=== PATIENT | female | born 1995 | race Caucasian/White ===

== ENCOUNTER 2016-12-15 21:11 | Emergency (ER) | payer OTHER ==
[2016-12-15] MEDS ORDERED: IBUPROFEN 600 MG TAB PO ONE (21:33)
--- NOTE | 2016-12-15 21:45 | EDPHY ---
General Time Seen by Provider: 12/15/16 21:29 Narrative: CHIEF COMPLAINT: Fall, left foot and ankle pain HISTORY OF PRESENT ILLNESS: Patient complains of left foot and ankle pain status post fall. She was walking down a set of concrete steps when she slipped, missing only the last 2 steps. She reports striking her left foot and her left 2nd toe on the edge of the concrete. She also struck her nose. She had a brief epistaxis this. All spontaneously. She had no head strike or loss of consciousness. She does have a moderate to severe pain in the left ankle and foot. It is primarily over the lateral foot and lateral ankle. It also involves the 2nd left toe. Worse with palpation and ambulation. Unable to bear weight due to the pain. Some tingling of the left 2nd toe. No lacerations. No pain anywhere else. No other associated complaints or modifying factors. PRIOR ORTHO INJURIES: Scoliosis status post surgical repair in [place] remotely ESTABLISHED ORTHOPEDIST: None locally REVIEW OF SYSTEMS: Ten systems reviewed and are negative unless otherwise noted in the HPI EXAMINATION General Appearance: Alert, no distress Cardiovascular: Pulses normal throughout. Symmetric DP and PT pulses 2+. Brisk cap refill Neurological: A&O, sensory symmetric, strength symmetric. No foot drop. Normal proprioception of the great toe Skin: Warm and dry, no rash. No lacerations. Extremities: Tenderness of left lateral ankle and left lateral midfoot. There is tenderness of the left 2nd toe. Range of motion difficult to test due to pain. There is no footdrop. Good strength of the left foot and ankle. Neurovascular intact distally Psychiatric: Mood and affect normal DIFFERENTIAL DIAGNOSES: Including but not limited to foot sprain, ankle sprain, metacarpal fracture, fibula fracture, toe fracture, dislocation, hematoma, contusion MDM: 9:35 p.m. Mechanical fall with left ankle and foot pain. She is neurovascular intact. X- rays of the areas of concern have been ordered. Ibuprofen is in order. She is in no acute distress. Father is at bedside. 10:20 p.m. Contacted by radiologist Dr. Guzman. Possible lucency at the base of the 5th metatarsal. Question whether this is related to previous fracture remotely. No evidence of Lisfranc fracture. I re-evaluated the patient she does have minimal pain there. She does report a fracture there remotely that was treated conservatively. The pain is primarily laterally over the foot. This may or may not be old healed fracture. I will place her in a boot as she is unable to bear weight due to the ankle and foot sprain. She also has crutches at bedside. Mandatory follow up with Orthopedics for definitive care. ED Precautions: Worsening pain. Erythema, edema, cyanosis, pallor, paresthesia or anesthesia. - History Smoking Status: Never smoked - Objective Vital Signs: Initial Vital Signs Temperature (C) 97.9 F 12/15/16 21:23 Heart Rate 87 12/15/16 21:23 Respiratory Rate 18 12/15/16 21:23 Blood Pressure 142/94 H 12/15/16 21:23 O2 Sat (%) 96 12/15/16 21:23 O2 Delivery Mode Room Air Allergies/Adverse Reactions: No Known Allergies Allergy (Unverified 12/15/16 21:23) Home Medications: Medication Instructions Recorded Gabapentin 12/15/16 Hydrocodone/APAP 5/325 [[place] 1 - 2 tab PO Q4H PRN #13 tab 12/15/16 5/325 (*)] Nexplanon 12/15/16 Sertraline HCl 12/15/16 Medications Given: Discontinued Medications Ibuprofen (Motrin) 600 mg PO EDNOW ONE Stop: 12/15/16 21:34 Last Admin: 12/15/16 21:57 Dose: 600 mg Departure - Departure Disposition: Home, Routine, Self-Care Clinical Impression: Other sprain of left foot, initial encounter, Sprain of other ligament of left ankle, initial encounter Metatarsal fracture Qualifiers: Encounter type: initial encounter Metatarsal bone: fifth Fracture type: closed Fracture alignment: nondisplaced Laterality: left Qualified Code(s): S92.355A - Nondisplaced fracture of fifth metatarsal bone, left foot, initial encounter for closed fracture Condition: Good Instructions: Hydrocodone/Acetaminophen (By mouth), Ankle Sprain (ED), Foot Sprain (ED) Additional Instructions: 1. Nonweightbearing of painful 2. Weightbearing as tolerated pain improves 3. Orthopedic follow-up as discussed 4. ED precautions as discussed Referrals: NONE *PRIMARY CARE P,. [Primary Care Provider] - As per Instructions Prem Masters MD [Medical Doctor] - As per Instructions Stand Alone Forms: Work Excuse Prescriptions: Hydrocodone/APAP 5/325 [[place] 5/325 (*)] 1 - 2 tab PO Q4H PRN #13 tab PRN Reason: Pain, Moderate
[2016-12-15] MEDS ORDERED: HYDROCOD/APAP 5/325 PREPACK#6 BTL TAKEHOME ONE (22:37)
[2016-12-15 22:55] VITALS: BP 131/87; PULSE 85; RESP 14; TEMP 98.1; O2SAT 95
== END 2016-12-15 22:55 | disposition home or self-care (01) ==
DX: S92.355A Nondisplaced fracture of fifth metatarsal bone, left foot, initial encounter for closed fracture (principal); S93.492A Sprain of other ligament of left ankle, initial encounter; S93.692A Other sprain of left foot, initial encounter; W10.9XXA Fall (on) (from) unspecified stairs and steps, initial encounter; Y99.8 Other external cause status; Y93.01 Activity, walking, marching and hiking

== ENCOUNTER 2018-08-21 12:31 | Emergency (ER) | payer OTHER ==
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
[2018-08-21] MEDS ORDERED: OXYCODONE/APAP 5/325 TAB PO ONE (12:36)
[2018-08-21 13:07] VITALS: BP 162/84
== END 2018-08-21 13:16 | disposition home or self-care (01) ==
LOC: EDUNIT#
DX: S93.401A Sprain of unspecified ligament of right ankle, initial encounter (principal); V49.49XA Driver injured in collision with other motor vehicles in traffic accident, initial encounter; Y92.410 Unspecified street and highway as the place of occurrence of the external cause

== ENCOUNTER → 2018-09-17 | Outpatient (CLI) | payer OTHER, BC | LOC: BMCIMAGING 13:56 ==